=== PATIENT | female | born 1970 | race Caucasian/White ===

== ENCOUNTER 2018-08-06 03:59 | Emergency (ER) | payer MEDICAID ==
[~2018-08-06] VITALS: Ht 167.6 cm; Wt 95.7 kg
--- NOTE | 2018-08-06 04:05 | NUR ---
PT TAKEN TO BED 8.
[2018-08-06 04:08] VITALS: BP 176/90
--- NOTE | 2018-08-06 04:13 | NUR ---
BIB SELF WITH C/O TAMPON STUCK IN VAGINA SINCE LAST NIGHT. DENIES PAIN. STATES SHE HAS BEEN ON HER PERIOD FOR 4 DAYS. DENIES ANY OTHER SYMPTOMS AT THIS TIME. BED IN LOW LOCKED POSTION, PATIENT OFFERED COMFORT MEASURES AND HOSPITAL GOWN. ERMD NOTIFIED OF PATIENT CONDITION.
--- NOTE | 2018-08-06 04:28 | NUR ---
Dr. Andrade preformed pelvic exam and extraction of FB, I champeroned. Tampon removed.
[2018-08-06 04:34] VITALS: BP 155/87
--- NOTE | 2018-08-06 04:35 | NUR ---
Patient discharged with v/s stable. Written and verbal after care instructions given and explained. Patient verbalized understanding. Ambulatory with steady gait. All questions addressed prior to discharge. Advised to follow up with PMD.
== END 2018-08-06 04:35 | disposition home or self-care (01) ==
LOC: MED 03:59
DX: T19.2XXA Foreign body in vulva and vagina, initial encounter (principal); X58.XXXA Exposure to other specified factors, initial encounter; Y93.89 Activity, other specified; Y92.89 Other specified places as the place of occurrence of the external cause; Y99.8 Other external cause status
CPT/HCPCS: 99284